=== PATIENT | male | born 1955 | race Caucasian/White ===

== ENCOUNTER 2020-02-03 05:27 | Inpatient (IN) | payer MEDICARE, OTHER ==
[~2020-02-03] VITALS: Ht 167.6 cm; Wt 117.9 kg
[2020-02-03] MEDS ORDERED: ACETAMINOPHEN 325 MG TAB ONE (05:47)
[2020-02-03] MEDS ORDERED: ONDANSETRON HCL INJ 2MG/ML 2ML 2 MG/ML VIAL IV STA (05:48)
[2020-02-03] MEDS ORDERED: CEFTRIAXONE SOD 1 GM/NS 50 ML 50 ML IV ONE (06:00)
[2020-02-03] MEDS ORDERED: ACETAMINOPHEN 325 MG TAB PO ONE (06:00)
[2020-02-03] MEDS ORDERED: DEXAMETHASONE SOD PHOS 10 MG/1 ML VIAL IV ONE (06:00)
[2020-02-03] MEDS ORDERED: AZITHROMYCIN 500MG/NS 250 ML 250 ML IV ONE (06:00)
[2020-02-03 06:07] LABS: BASOPHILS % 0.1 % (0.0-1.0); EOSINOPHILS % 0.4 % (0.0-6.0); HEMATOCRIT 47.1 % (38.2-49.6); HEMOGLOBIN 15.7 g/dL (14.0-18.0); LYMPHOCYTES # (AUTO) 1.4 (1.0-3.2); MEAN CORPUSCULAR HEMOGLOBIN 30.1 pg (28-32); MEAN CORPUSCULAR HGB CONC 33.3 g/dL (31-35); MEAN CORPUSCULAR VOLUME 90.2 fL (81-99); MONOCYTES # (AUTO) 0.4 (0.2-0.8); NEUTROPHILS # (AUTO) 5.4 (2.1-6.9); NEUTROPHILS % 74.9 % (38.7-80.0); PLATELET COUNT 175 x10e3/uL (140-360); RED BLOOD COUNT 5.22 x10e6/uL (4.3-5.7); RED CELL DISTRIBUTION WIDTH 12.9 % (11.7-14.4)
--- NOTE | 2020-02-03 06:11 | Emergency Department Note ---
History of Present Illnes History of Present Illness Chief Complaint: COVID PUI History of Present Illness This is a 64 year old male REPORTS FEVER, NAUSEA, COUGH, SOB, ABD CRAMPS X1 WEEK; ORAL TEMP IN TRIAGE 102.0 F, PT MEDICATED PER PROTOCOL / MD ORDERS; PTS SPOUSE COVID + APPROX 3 DAYS AGO; RESP ARE EVEN, SHALLOW, PT BECOMES SOB WITH MINIMAL EXERTION, SPO2 92% AT THIS TIME; . Historian: Patient, Family Member Arrival Mode: Car Onset (how long ago): day(s) (6) Location: ALL OVER Quality: FEVER, COUGH, SOB, LOSS OF TASTE AND SMELL, DECREASED APPETITIE Radiation: Reports non-radiation Severity: moderate Onset quality: gradual Duration (how long): day(s) (6) Timing of current episode: constant Progression: unchanged Chronicity: new Context: Reports recent illness, Reports other ( TESTES POSITIVE FOR COVID 19) Relieving factors: none Exacerbating factors: movement Associated symptoms: Reports cough, Reports fever/chills, Reports malaise Treatments prior to arrival: none Past Medical/Family History Physician Review I have reviewed the patient's past medical and family history. Any updates have been documented here. Past Medical History Recent Fever: Yes Clinical Suspicion of Infectio: Yes New/Unexplained Change in Ment: No Past Medical History: None Past Surgical History: Appendectomy Social History Smoking Cessation: Never Smoker Alcohol Use: None Any Illegal Drug Use: No Review of Systems Review of Systems Constitutional: Reports as per HPI EENTM: Reports no symptoms Cardiovascular: Reports no symptoms Respiratory: Reports as per HPI Gastrointestinal: Reports no symptoms Genitourinary: Reports no symptoms Musculoskeletal: Reports no symptoms Integumentary: Reports no symptoms Neurological: Reports no symptoms Psychological: Reports no symptoms Endocrine: Reports no symptoms Hematological/Lymphatic: Reports no symptoms Physical Exam Related Data Allergies: Coded Allergies: No Known Allergies (Unverified , 02/03/20) Triage Vital Signs Vital Signs Date Time Temp Pulse Resp B/P (MAP) Pulse Ox O2 Delivery O2 Flow Rate FiO2 02/03/20 05:36 102.0 70 22 132/78 93 Room Air Vital signs reviewed: Yes Physical Exam CONSTITUTIONAL Constitutional: Present well-developed, Present well-nourished HENT HENT: Present normocephalic, Present atraumatic, Present oropharynx clear/moist, Present nose normal HENT L/R: Present left ext ear normal, Present right ext ear normal EYES Eyes: Reports PERRL, Reports conjunctivae normal NECK Neck: Present ROM normal PULMONARY Pulmonary: Present effort normal, Present rhonchi (AT BASES BILATERAL) CARDIOVASCULAR Cardiovascular: Present regular rhythm, Present heart sounds normal, Present capillary refill normal, Present normal rate GASTROINTESTINAL Abdominal: Present soft, Present nontender, Present bowel sounds normal GENITOURINARY Genitourinary: Present exam deferred SKIN Skin: Present warm, Present dry MUSCULOSKELETAL Musculoskeletal: Present ROM normal NEUROLOGICAL Neurological: Present alert, Present oriented x 3, Present no gross motor or sensory deficits PSYCHOLOGICAL Psychological: Present mood/affect normal, Present judgement normal Results Laboratory Laboratory Laboratory Tests Test 02/03/20 05:30 White Blood Count 7.22 x10e3/uL (4.8-10.8) Red Blood Count 5.22 x10e6/uL (4.3-5.7) Hemoglobin 15.7 g/dL (14.0-18.0) Hematocrit 47.1 % (38.2-49.6) Mean Corpuscular Volume 90.2 fL (81-99) Mean Corpuscular Hemoglobin 30.1 pg (28-32) Mean Corpuscular Hemoglobin Concent 33.3 g/dL (31-35) Red Cell Distribution Width 12.9 % (11.7-14.4) Platelet Count 175 x10e3/uL (140-360) Neutrophils (%) (Auto) 74.9 % (38.7-80.0) Lymphocytes (%) (Auto) 19.0 % (18.0-39.1) Monocytes (%) (Auto) 5.0 % (4.4-11.3) Eosinophils (%) (Auto) 0.4 % (0.0-6.0) Basophils (%) (Auto) 0.1 % (0.0-1.0) Neutrophils # (Auto) 5.4 (2.1-6.9) Lymphocytes # (Auto) 1.4 (1.0-3.2) Monocytes # (Auto) 0.4 (0.2-0.8) Eosinophils # (Auto) 0.0 (0.0-0.4) Basophils # (Auto) 0.0 (0.0-0.1) Absolute Immature Granulocyte (auto 0.04 x10e3/uL (0-0.1) Sodium Level 133 mmol/L (136-145) Potassium Level 4.1 mmol/L (3.5-5.1) Chloride Level 98 mmol/L (98-107) Carbon Dioxide Level 26 mmol/L (22-29) Anion Gap 13.1 mmol/L (8-16) Blood Urea Nitrogen 12 mg/dL (7-26) Creatinine 0.85 mg/dL (0.72-1.25) Estimat Glomerular Filtration Rate > 60 ML/MIN (60-) BUN/Creatinine Ratio 14 (6-25) Glucose Level 122 mg/dL (74-118) Calcium Level 8.9 mg/dL (8.4-10.2) Total Bilirubin 0.4 mg/dL (0.2-1.2) Aspartate Amino Transf (AST/SGOT) 25 IU/L (5-34) Alanine Aminotransferase (ALT/SGPT) 15 IU/L (0-55) Alkaline Phosphatase 59 IU/L (40-150) Total Protein 6.9 g/dL (6.5-8.1) Albumin 2.8 g/dL (3.5-5.0) Globulin 4.1 g/dL (2.3-3.5) Albumin/Globulin Ratio 0.7 (0.8-2.0) Lab results reviewed: Yes Imaging Imaging results reviewed: Yes Assessment & Plan Medical Decision Making MDM PT WITH FEVER, COUGH, SOB, CBC, CMP, BLOOD CULTURES, COVID 19, CXR ORDERED TO EVAL FOR ELECTROLYTE ABNORMALITY, VIRAL PNEUMONIA WILL PLACE PT ON MONITOR AND CONTINUOUS PULSE OX IN ER AND MONITOR FOR EPISODES OF HYPOXIA. ROCEPHIN 1 GRAM IV ORDERED ZITHROMAX 500 MG IV ORDERED DEXAMETHASONE 6 MG IV ORDERED TYLENOL 975 MG PO ORDERED I SPOKE WITH DR FRAIRE, DR Dalila SAEED, AND DR DUVALL, ADMIT INPATIENT COVID PUI UN IT Reassessment Reassessment time: 06:27 Reassessment OXYGEN SATURATIONS DROPPED TO 86 % STARTED ON 2 LITERS PER O2 VIA NC SATS NOW 94% Assessment & Plan Final Impression: (1) Fever (2) Hypoxia (3) COVID-19 (4) Viral pneumonia Depart Disposition: ADMITTED Last Vital Signs Date Time Temp Pulse Resp B/P (MAP) Pulse Ox O2 Delivery O2 Flow Rate FiO2 02/03/20 05:36 102.0 70 22 132/78 93 Room Air Medications in the ED Acetaminophen 975 mg STK-MED ONCE .ROUTE ; Start 02/03/20 at 05:47; Stop 02/03/20 at 05:41; Status DC Acetaminophen 975 mg ONCE ONCE PO ; Start 02/03/20 at 06:00; Stop 02/03/20 at 0 6:01 Ondansetron HCl 4 mg NOW STAT IV ; Start 02/03/20 at 05:48; Stop 02/03/20 at 05:56; Status DC Ceftriaxone Sodium 50 ml @ 100 mls/hr ONCE ONCE IV ; Start 02/03/20 at 06:00; Stop 02/03/20 at 06:29 Azithromycin 250 ml @ 200 mls/hr NOW ONCE IV ; Start 02/03/20 at 06:00; Stop 02/03/20 at 07:14 Dexamethasone Sodium Phosphate 6 mg ONCE ONCE IV ; Start 02/03/20 at 06:00; Stop 02/03/20 at 06:01 JORGE LUIS HOWARD MD Feb 03, 2020 06:11
[2020-02-03 06:26] LABS: ALANINE AMINOTRANSFERASE 15 IU/L (0-55); ALBUMIN 2.8 g/dL (3.5-5.0); ALBUMIN/GLOBULIN RATIO 0.7 (0.8-2.0); ALKALINE PHOSPHATASE 59 IU/L (40-150); ANION GAP 13.1 mmol/L (8-16); BLOOD UREA NITROGEN 12 mg/dL (7-26); BUN/CREATININE RATIO 14 (6-25); CALCIUM 8.9 mg/dL (8.4-10.2); CARBON DIOXIDE 26 mmol/L (22-29); CHLORIDE 98 mmol/L (98-107); CREATININE, SERUM 0.85 mg/dL (0.72-1.25); EST GLOMERULAR FILTRATION RATE > 60 ML/MIN (60-); GLUCOSE 122 mg/dL (74-118); POTASSIUM 4.1 mmol/L (3.5-5.1); SODIUM 133 mmol/L (136-145)
[2020-02-03] MEDS ORDERED: ACETAMINOPHEN 325 MG TAB PO PRN (06:45)
[2020-02-03] MEDS ORDERED: CEFTRIAXONE SOD 1 GM/NS 50 ML 50 ML IV SCH (06:45)
[2020-02-03] MEDS ORDERED: DEXAMETHASONE 10MG/ML PF INJ IV ONE (06:45)
[2020-02-03] MEDS ORDERED: AZITHROMYCIN 500MG/NS 250 ML 250 ML IV SCH (06:45)
[2020-02-03] MEDS ORDERED: SODIUM CHLORIDE FLUSH 10 ML SYR INJ PRN (06:45)
[2020-02-03] MEDS ORDERED: ONDANSETRON HCL INJ 2MG/ML 2ML 2 MG/ML VIAL IV PRN (06:45)
--- NOTE | 2020-02-03 07:03 | NUR ---
walking rounds with yue aggarwal
--- NOTE | 2020-02-03 08:33 | NUR ---
attempted to call report, receiving nurse states that she will call back.
[2020-02-03 09:30] VITALS: BP 128/75
--- NOTE | 2020-02-03 09:36 | NUR ---
PATIENT ARRIVED TO UNIT AT APPROXIMATELY 0900. CURRENTLY RESTING IN BED AAOX3. ACYANOTIC. O2 AT 2L NASAL CANNULA. REFUSED TO CHANGE INTO GOWN AFTER BEING INFORMED THAT HIS SHIRT IS WET. DENIES DISCOMFORT. CALL LIGHT IN REACH. SIDE RAILS UP X2. BED LOW.
[2020-02-03] MEDS: ENOXAPARIN INJ 80 MG/0.8 ML SYR SC SCH ×2 (09:45→16:15)
[2020-02-03 09:56] VITALS: BP 128/75
--- NOTE | 2020-02-03 10:10 | Diagnostic Imaging Report ---
EXAMINATION: CHEST SINGLE (PORTABLE) INDIATION: SOB,FEVER, COUGH COMPARISON: None FINDINGS: AP view TUBES and LINES: None. LUNGS/PLEURA: Lungs are well inflated. There are bilateral patchy opacities predominantly in lower lobes compatible with multifocal pneumonia. There is obscuration of bilateral costophrenic angles which could be due to small effusion and atelectasis.. HEART AND MEDIASTINUM: The cardiomediastinal silhouette is unremarkable. BONES AND SOFT TISSUES: No acute osseous lesion. Soft tissues are unremarkable. UPPER ABDOMEN: No free air under the diaphragm. IMPRESSION: Bilateral patchy opacities predominantly in lower lobes compatible with multifocal pneumonia. Signed by: Greyson Doan MD on 02/03/2020 10:07 AM
[2020-02-03 12:06] VITALS: BP 103/60
--- NOTE | 2020-02-03 14:50 | Consultation ---
DATE OF CONSULTATION: Pulmonary Critical Care Consultation CHIEF COMPLAINT: Malaise and dyspnea along with fever. HISTORY OF PRESENT ILLNESS: The patient is a 64-year-old man. He has history of malaise and fatigue for about 2 weeks. He has been more short of breath over the last week. He also notes fever and cough for about a week. He denies any nausea or vomiting. He came to the Emergency Department and had a chest x-ray consistent with viral pneumonia. He had a positive COVID test. He received IV fluids and notes significant improvement with this. PAST MEDICAL HISTORY: 1. The patient denies any prior history of asthma or respiratory problems. 2. No prior history of cardiac disease. 3. No prior history of diabetes. PAST SURGICAL HISTORY: Noncontributory. ALLERGIES: NO KNOWN DRUG ALLERGIES. FAMILY HISTORY: Noncontributory. SOCIAL HISTORY: The patient is a smoker, but quit 30 years ago. He is not a drinker. REVIEW OF SYSTEMS: The patient is reporting some fevers at home. He has no headache. He has no neck pain. He is not having any chest pain. He has no dyspnea, he did have dyspnea previously. He has some cough. He has no abdominal pain. There is no nausea or vomiting. He has no leg edema. PHYSICAL EXAMINATION: VITAL SIGNS: The patient is afebrile, blood pressure is 103/60, and saturation is 94% on 2 L. HEENT: Shows no facial swelling or erythema. LYMPHATIC: Shows no submandibular, cervical, or supraclavicular adenopathy. CARDIAC: Reveals regular rate and rhythm with normal S1, S2. LUNGS: Auscultation of lungs reveals rhonchorous breath sounds bilaterally. There is no wheezing. ABDOMEN: Soft, nontender. There is no rebound or guarding. EXTREMITIES: Shows no leg edema or calf tenderness. There is no cyanosis or clubbing. SKIN: Shows no rashes. NEUROLOGIC: Shows no focal abnormalities. LABORATORY DATA: CBC is within normal limits. Sodium is 133 and WLN-bh-bkaxzxbdrd ratio is normal. Albumin is 2.8. RADIOGRAPHIC DATA: Chest x-ray shows bilateral infiltrates. IMPRESSION: 1. Viral pneumonia and COVID-19 probable infection. 2. Dehydration. 3. Cough. PLAN: 1. The patient is okay for discharge home on p.o. antibiotics. 2. Tylenol to control temperature. 3. Home oxygen evaluation. 4. Consider low-dose prednisone. 5. Follow up in 10-14 days with family physician. MD KEITH De Oliveira/[place] /[id number]
[2020-02-03 16:13] VITALS: BP 136/87
[2020-02-03] MEDS ORDERED: AZITHROMYCIN250 MG PO (16:50)
[2020-02-03] MEDS ORDERED: ASPIRIN325 MG PO (16:50)
[2020-02-03] MEDS ORDERED: ZINC SULFATE220 M1 PO (16:52)
[2020-02-03] MEDS ORDERED: VITAMIN C1000 MG PO (16:54)
--- NOTE | 2020-02-03 18:46 | History and Physical ---
HISTORY AND PHYSICAL, SHORT-STAY, AND DISCHARGE SUMMARY CONSULTING PHYSICIANS: 1. Dr. Roosevelt Collazo with Pulmonology. 2. Dr. Howie Barnett with Infectious Disease. CHIEF COMPLAINT: Fever and possible exposure to COVID. HISTORY OF PRESENT ILLNESS: The patient is a 64-year-old man with fever, nausea, cough, shortness of breath, abdominal cramps for a week with admitting temperature of 102.0. The patient's spouse was COVID positive three days ago. He has had a decrease in appetite and loss of taste and smell recently. He received Rocephin, Zithromax, dexamethasone and Tylenol in the emergency department and noted that his oxygen saturation dropped to 86%, he was on placed on 2 L of oxygen via nasal cannula. PAST MEDICAL HISTORY: Morbid obesity. PAST SURGICAL HISTORY: Appendectomy. FAMILY HISTORY: Father had heart problems. Brother had massive PR, was on heavy steroids for back pain. SOCIAL HISTORY: The patient quit smoking about 30 years ago. He was smoking about one pack per day for 10 years. He smoked beer 4-5 per day. States he quit drinking about a week ago. Denies use of illicit drugs. ALLERGIES: NO KNOWN ALLERGIES. REVIEW OF SYSTEMS: Generally with malaise and fatigue for 2 weeks. Other complaints as per history of present illness. Currently feeling much better since he ate and has received medications. Apparently, he had not eaten for about a week. Still has some dyspnea on exertion. Currently denies any nausea, vomiting, diarrhea, or constipation. A 14-point review of systems completed. OBJECTIVE: VITAL SIGNS: Temperature 98.1, heart rate 60, blood pressure 132/78, respirations 18, and oxygen saturation 95% on telemetry showing sinus bradycardia with a heart rate of 59, height 5 feet 6 inches, weight 260 pounds, BMI 41.96. GENERAL: The patient is out of bed, sitting on a couch at the bedside. No acute distress. LUNGS: Bibasilar crackles. Currently not using any oxygen. HEENT: EOMI. NECK: Supple. No JVD. CARDIOVASCULAR: Regular rate and rhythm. No murmur. ABDOMEN: Bowel sounds positive, soft, obese. EXTREMITIES: No pitting edema. No clubbing, cyanosis, or marked swelling. NEUROLOGICAL: GCS 15. Nonfocal. LABORATORY DATA: WBC 7.22, hemoglobin 15.7, hematocrit 47.1, platelets 175. Sodium 133, potassium 4.1, chloride 98, CO2 of 26, anion gap 13.1, BUN 12, creatinine 0.85, estimated GFR greater than 60, glucose 122, calcium 8.9, total bilirubin 0.4, AST 25, ALT 15, alkaline phosphatase 59, total protein 6.9, albumin 2.8. Coronavirus PCR collected today, any results are pending. Blood cultures x2 collected, results are pending. Chest x-ray today shows bilateral patchy opacities, predominantly in the lower lobes, compatible with multifocal pneumonia. ASSESSMENT AND PLAN: 1. Viral multifocal community-acquired pneumonia, POA, due to COVID-19. The patient has received the aforementioned medications. He has been on Lovenox, Rocephin, azithromycin, p.r.n. Tylenol, IV Decadron. He was seen and evaluated by both Dr. Collazo and Dr. Barnett. He is being sent home on aspirin, albuterol inhaler and Z-Deshawn. The Z-Deshawn is for three days, aspirin for month 325 mg daily, albuterol HFA 2 puffs q.8 hours p.r.n. for cough. Also, send him home on zinc sulfate, and vitamin C. 2. Dehydration, acute with inadequate oral intake. He is eating much better now. BUN 12, creatinine 0.85. 3. Acute hyponatremia. Sodium 133, and this should improve with the patient's ability to eat. 4. Hypoalbuminemia, albumin 2.8. This will improve with nutritional status. 5. Asymptomatic bradycardia. 6. Morbid obesity with BMI 41.96. 7. Billing code [id number] and time spent 60 minutes. and discharge summary was dictated by Cem Solo acute care nurse practitioner for Dr. Devin Arnold. Dictated by Cem Solo, PROPERTY AND EQUIPMENT CLERK MD SUZANNE Staton/MODL /[id number]
--- NOTE | 2020-02-03 19:11 | Consultation ---
DATE OF CONSULTATION: HISTORY OF PRESENT ILLNESS: Mr. Landon is a 64-year-old white male, who comes in with 2 weeks of being sick, not feeling well, he had little bit shortness of breath and cough and weakness, came to the emergency room. His chest x-ray was consistent with viral pneumonia. His comorbidity was positive. He was admitted, started on IV fluid today. When I saw him, he is feeling much better. He wants to go home. He said his first day he had which was really good. He ate well and he wants to go home. REVIEW OF SYSTEMS: At present time HEENT: Negative. PULMONARY: Negative. CARDIAC: Negative. : Negative. All within normal limits. PAST MEDICAL HISTORY: Denies. PAST SURGICAL HISTORY: Denies. ALLERGIES: NKA. SOCIAL HISTORY: He quit 30 years ago of smoking. PHYSICAL EXAMINATION: GENERAL: Currently alert, oriented. VITAL SIGNS: Stable, currently afebrile. HEENT: Not icteric. NECK: Supple. CHEST: Clear. HEART: S1, S2. No murmurs. ABDOMEN: Soft. Bowel sounds present. No tenderness. No hepatosplenomegaly. EXTREMITIES: No edema. SKIN: No rash. LABORATORY DATA: White count 7.2, hemoglobin 15. Sodium 137, potassium 4.1 creatinine 0.85. IMPRESSION: Coronavirus disease-19 pneumonia, clinically seems to be better since it is 2 weeks. He is feeling better. There is concern he may have superimposed bacteria. He can go home with azithromycin, Z-Deshawn, aspirin 325 p.o. daily for 3 days, albuterol 2 puffs q.4 hours p.r.n. I offered him oxygen, but he refused. He is feeling good. have in 2 weeks. Discussed with medical team at length. MD NICOLE Flores/MODL /[id number]
== END 2020-02-03 18:00 | disposition home or self-care (01) | DRG 177 ==
LOC: ER 08:05 → ERHOLD 08:15 → IMCU 09:42
PROVIDERS: ADMIT Internal Medicine; ATTEND Internal Medicine
DX: U07.1 COVID-19 (principal); J18.9 Pneumonia, unspecified organism; J12.89 Other viral pneumonia; J15.9 Unspecified bacterial pneumonia; E87.1 Hypo-osmolality and hyponatremia; Z68.41 Body mass index [BMI] 40.0-44.9, adult; E87.0 Hyperosmolality and hypernatremia; R09.02 Hypoxemia; E66.01 Morbid (severe) obesity due to excess calories; Z82.49 Family history of ischemic heart disease and other diseases of the circulatory system; Z87.891 Personal history of nicotine dependence; E86.0 Dehydration; E88.09 Other disorders of plasma-protein metabolism, not elsewhere classified; R00.1 Bradycardia, unspecified; Z20.828 Contact with and (suspected) exposure to other viral communicable diseases
CPT/HCPCS: 36415; 71045; 80053; 85025; 87040; 87635; 99285; J0456; J0696; J1100; J1650; J2405

== ENCOUNTER 2022-08-14 13:50 | Emergency (ER) | payer MEDICARE ==
[~2022-08-14] VITALS: Ht 167.6 cm; Wt 117.9 kg
[~2022-08-14 13:50] MED LIST: ASPIRIN325 MG PO; AZITHROMYCIN250 MG PO; VITAMIN C1000 MG PO; ZINC SULFATE220 M1 PO
[2022-08-14] MEDS ORDERED: ONDANSETRON HCL INJ 2MG/ML 2ML 2 MG/ML VIAL IV STA (14:26)
[2022-08-14] MEDS ORDERED: GLUCAGON FOR INJ 1 MG VIAL IV ONE (14:30)
[2022-08-14] MEDS ORDERED: SODIUM CHLORIDE 0.9% 1000ML 1,000 ML IV ONE (14:30)
[2022-08-14 15:14] LABS: BASOPHILS % 0.5 % (0.0-1.0); EOSINOPHILS # (AUTO) 0.2 (0.0-0.4); EOSINOPHILS % 3.2 % (0.0-6.0); HEMOGLOBIN 15.8 g/dL (14.0-18.0); LYMPHOCYTES # (AUTO) 2.3 (1.0-3.2); LYMPHOCYTES % 31.2 % (18.0-39.1); MEAN CORPUSCULAR HEMOGLOBIN 30.6 pg (28-32); MEAN CORPUSCULAR HGB CONC 31.6 g/dL (31-35); MEAN CORPUSCULAR VOLUME 96.9 fL (81-99); MONOCYTES # (AUTO) 0.8 (0.2-0.8); MONOCYTES % 10.8 % (4.4-11.3); NEUTROPHILS % 54.2 % (38.7-80.0); PLATELET COUNT 261 x10e3/uL (140-360); RED BLOOD COUNT 5.16 x10e6/uL (4.3-5.7); RED CELL DISTRIBUTION WIDTH 12.2 % (11.7-14.4)
[2022-08-14 15:45] VITALS: BP 127/80
[2022-08-14 15:48] LABS: ALBUMIN 3.6 g/dL (3.5-5.0); ALBUMIN/GLOBULIN RATIO 0.9 (0.8-2.0); ANION GAP 16.1 mmol/L (8-16); CALCIUM 9.2 mg/dL (8.4-10.2); CREATININE, SERUM 0.91 mg/dL (0.72-1.25); POTASSIUM 4.1 mmol/L (3.5-5.1)
== END 2022-08-14 15:47 | disposition home or self-care (01) ==
LOC: ER 13:57
DX: R09.89 Other specified symptoms and signs involving the circulatory and respiratory systems (principal); T18.128A Food in esophagus causing other injury, initial encounter
CPT/HCPCS: 36415; 80053; 85025; 99283; J1610; J2405; J7030

== ENCOUNTER 2023-06-25 07:18 | Emergency (ER) | payer MEDICARE ==
[~2023-06-25] VITALS: Ht 167.6 cm; Wt 117.9 kg
[2023-06-25] MEDS ORDERED: ONDANSETRON HCL INJ 2MG/ML 2ML 2 MG/ML VIAL IV STA (07:25)
[2023-06-25] MEDS ORDERED: GLUCAGON FOR INJ 1 MG VIAL IV ONE (07:30)
[2023-06-25] MEDS ORDERED: SODIUM CHLORIDE 0.9% 1000ML 1,000 ML IV ONE (07:30)
[2023-06-25 07:40] LABS: BASOPHILS # (AUTO) 0.1 (0.0-0.1); BASOPHILS % 0.6 % (0.0-1.0); EOSINOPHILS # (AUTO) 0.4 (0.0-0.4); EOSINOPHILS % 4.7 % (0.0-6.0); HEMATOCRIT 48.4 % (38.2-49.6); HEMOGLOBIN 16.4 g/dL (14.0-18.0); LYMPHOCYTES # (AUTO) 2.4 (1.0-3.2); LYMPHOCYTES % 29.9 % (18.0-39.1); MEAN CORPUSCULAR HEMOGLOBIN 31.2 pg (28-32); MEAN CORPUSCULAR HGB CONC 33.9 g/dL (31-35); MEAN CORPUSCULAR VOLUME 92.2 fL (81-99); MONOCYTES # (AUTO) 0.6 (0.2-0.8); MONOCYTES % 7.2 % (4.4-11.3); NEUTROPHILS # (AUTO) 4.5 (2.1-6.9); NEUTROPHILS % 57.2 % (38.7-80.0); PLATELET COUNT 202 x10e3/uL (140-360); RED BLOOD COUNT 5.25 x10e6/uL (4.3-5.7); RED CELL DISTRIBUTION WIDTH 12.9 % (11.7-14.4); WHITE BLOOD COUNT 7.89 x10e3/uL (4.8-10.8)
[2023-06-25] MEDS ORDERED: ONDANSETRON HCL INJ 2MG/ML 2ML 2 MG/ML VIAL ONE (07:44)
[2023-06-25 08:04] LABS: ALBUMIN 3.7 g/dL (3.5-5.0); ALBUMIN/GLOBULIN RATIO 1.1 (0.8-2.0); ANION GAP 15.3 mmol/L (8-16); BILIRUBIN,TOTAL 0.9 mg/dL (0.2-1.2); CALCIUM 9.1 mg/dL (8.4-10.2); CREATININE, SERUM 0.8 mg/dL (0.72-1.25); POTASSIUM 4.3 mmol/L (3.5-5.1)
[2023-06-25 09:30] VITALS: O2SAT 95
== END 2023-06-25 09:30 | disposition home or self-care (01) ==
LOC: ER 07:25
DX: R09.89 Other specified symptoms and signs involving the circulatory and respiratory systems (principal); K22.2 Esophageal obstruction; K21.9 Gastro-esophageal reflux disease without esophagitis; F41.9 Anxiety disorder, unspecified
CPT/HCPCS: 36415; 71046; 80053; 83690; 85025; 99284; J1610; J2405; J7030